=== PATIENT | female | born 1965 | race Caucasian/White ===

== ENCOUNTER → 2019-05-22 11:43 | Outpatient (CLI) | payer MEDICAID, SELFPAY ==
--- NOTE | 2019-05-22 11:52 | US_ITS ---
US transvaginal HISTORY: ITS.REASON: pelvic pain ORDERING PHYSICIAN: Oneal Unger MD PATIENT AGE: 53 years Comparison: None FINDINGS: Prior complete hysterectomy. No pelvic mass apparent. No adnexal mass. Small amount fluid is present in the cervical cuff region. IMPRESSION: Prior hysterectomy. Small amount fluid in the cervical cuff region nonspecific otherwise negative
== END ==
PROVIDERS: PCP Internal Medicine Adolescent Medicine; Visit Provider Obstetrics & Gynecology
DX: R10.2 Pelvic and perineal pain (principal)
CPT/HCPCS: 76830

== ENCOUNTER → 2019-05-23 12:02 | Outpatient (CLI) | payer MEDICAID, SELFPAY ==
--- NOTE | 2019-05-23 15:31 | CT_ITS ---
CT abdomen pelvis wo con CLINICAL INDICATION: Persistent lower abdominal and right-sided pelvic pain ITS.REASON: abd pain ORDERING PHYSICIAN: Julián Shane MD PATIENT AGE: 53 years COMPARISON: 05/19/2019 TECHNIQUE: Axial images obtained with sagittal and coronal reformats. All CT scans at the facility use one or more dose reduction, viz: automated exposure control, ma/kV adjustment per patient size (including targeted exams where dose is matched to indication, i.e. head), or iterative reconstruction technique. IV contrast was not utilized. Images are obtained without and with oral contrast. FINDINGS: There is some patchy density in the right lung base posterior laterally nonspecific. Postcholecystectomy changes. The liver, spleen, adrenal glands, pancreas, and kidneys have an unremarkable unenhanced CT appearance. No renal or ureteral calculi are evident. Previously noted tiny opacity at the right UVJ is no longer apparent. Urinary bladder has an unremarkable appearance. There is a mild amount of retained colonic feces. No evidence of appendicitis or diverticulitis. No intestinal obstruction or free air. The terminal ileum has an unremarkable appearance. There are few small lymph nodes in the mesentery which are nonspecific. Small bowel has an unremarkable appearance. No acute bony findings. No abnormal fluid collections. No free air. No abdominal wall hernias aside from a tiny umbilical hernia containing fat. There are posthysterectomy changes IMPRESSION: 1. No acute abdominal or pelvic findings. 2. Mild amount of retained colonic feces. 3. No evidence of small bowel obstruction or abnormal bowel gas pattern. 4. Previously noted tiny density at the distal right ureter is no longer apparent
== END ==
PROVIDERS: PCP Internal Medicine Adolescent Medicine; Visit Provider Surgery
DX: R10.2 Pelvic and perineal pain (principal); R10.9 Unspecified abdominal pain
CPT/HCPCS: 74176

== ENCOUNTER → 2019-06-03 15:17 | Outpatient (CLI) | payer MEDICAID, SELFPAY ==
--- NOTE | 2019-06-03 | ECG_ITS ---
APPROVED REPORT Exam: Resting ECG HR:77 bpm ECG Measurements Heart Rate 77 AXES VA 156 P 56 QRSd 78 QRS 2 QT 382 T 46 QTc 432 <Conclusion> Normal sinus rhythm Possible Left atrial enlargement,Poor R Wave Progression Abnormal ECG Electronically signed by : Zackery Holcomb, 06/03/2019 17:20:59
[2019-06-03 15:19] LABS: Microscopic, Urine URINE MICROSCOPIC (MICROSCOPIC)
--- NOTE | 2019-06-03 15:36 | XR_ITS ---
PROCEDURE: XR CHEST 2V CLINICAL HISTORY: MITRAL VALVE PROLAPSE; FAMILY HISTORY OF CAD COMPARISON: CXR2V XR chest 2V from 04/17/2018 FINDINGS: Unremarkable cardiovascular structures. Calcified granulomas are present in the left upper lobe. The remaining lungs are clear. No acute bony anomalies. IMPRESSION: No change with no acute finding Dictated by: Jed Arevalo MD 06/03/2019 16:18 Signed by: <Electronically signed by Jed Arevalo MD in [place]> 06/03/2019 16:18
[2019-06-03 15:39] LABS: Appearance,Urine CLEAR (Clear); Bilirubin,Urine Negative (Negative); Blood, Urine Negative (Negative); Color,Urine YELLOW (Yellow); Glucose,Urine (UA) Negative (Negative); Ketones,Urine Negative (Negative); Leukocyte Esterase,Urine Negative (Negative); Nitrate,Urine Negative (Negative); Protein,Urine Negative (Negative); Specific Gravity, Urine 1.025 (1.005-1.030); Urobilinogen,Urine 0.2 EU/dl (0.2)
[2019-06-03 15:42] LABS: Basophils % 0.4 % (0.1-2.0); Eosinophils # 0.2 K/mm3 (0.0-0.4); Eosinophils % 4.1 % (0.1-12.0); Hematocrit 41.8 % (37.0-47.0); Hemoglobin 13.8 g/dL (12.2-16.2); Lymphocytes # 1.7 K/mm3 (0.7-4.5); Lymphocytes % 30.7 % (10-50); Mean Corpuscular HGB Conc 33.1 g/dL (31.8-35.4); Mean Corpuscular Hemoglobin 29.6 pg (27.0-31.2); Mean Corpuscular Volume 89.6 fl (81-99); Monocytes # 0.3 K/mm3 (0.1-1.0); Monocytes % 5.4 % (1.7-9.3); Neutrophils # 3.3 K/mm3 (1.8-7.8); Neutrophils % 59.3 % (37.0-80.0); Platelet Count 273 K/mm3 (142-424); Red Blood Count 4.66 M/mm3 (4.20-5.40); Red Cell Distribution Width 12.3 % (11.5-17.5); White Blood Count 5.5 K/mm3 (4.8-10.8)
[2019-06-03 15:48] LABS: Bacteria,Urine Trace /lpf; Mucus,Urine Trace /lpf; Squamous Epithelial Cell,Urine Occasional #/hpf (0-5)
[2019-06-03 18:18] LABS: Alanine Aminotransferase 59 U/L (12-78); Albumin Level 4.3 gm/dL (3.4-5.0); Albumin/Globulin Ratio 1.2 (1.1-1.8); Alkaline Phosphatase 91 U/L (46-116); Aspartate Amino Transferase 25 U/L (15-37); Bilirubin,Total 1.8 mg/dL (0.2-1.0); Blood Urea Nitrogen 15 mg/dL (7-18); Calcium 9.6 mg/dL (8.5-10.1); Carbon Dioxide 29 mmol/L (21.0-32.0); Chloride 104 mmol/L (98-107); Estimated Glomerular Filt Rate 75 ml/min (>60); GFR (African American) 90 ML/MIN (>60); Globulin 3.6 gm/dl (1.3-3.2); Glucose 90 mg/dL (74-106); Sodium 145 mmol/L (136-145); Total Protein,Serum 7.9 gm/dL (6.4-8.2)
== END ==
PROVIDERS: Visit Provider Obstetrics & Gynecology
DX: Z01.818 Encounter for other preprocedural examination (principal); R10.2 Pelvic and perineal pain
CPT/HCPCS: 36415; 71046; 80053; 81001; 85025; 93005

== ENCOUNTER 2019-06-12 08:36 | Inpatient (IN) ==
[2019-06-12 09:33] LABS: Basophils % 0.3 % (0.1-2.0); Eosinophils # 0.3 K/mm3 (0.0-0.4); Eosinophils % 4.2 % (0.1-12.0); Hematocrit 31.3 % (37.0-47.0); Hemoglobin 10.4 g/dL (12.2-16.2); Lymphocytes # 1.3 K/mm3 (0.7-4.5); Lymphocytes % 22.6 % (10-50); Mean Corpuscular HGB Conc 33.4 g/dL (31.8-35.4); Mean Corpuscular Volume 89.8 fl (81-99); Mean Platelet Volume 8.1 fl (7.4-10.4); Monocytes # 0.4 K/mm3 (0.1-1.0); Monocytes % 6.2 % (1.7-9.3); Neutrophils % 66.7 % (37.0-80.0); Platelet Count 213 K/mm3 (142-424); Red Blood Count 3.48 M/mm3 (4.20-5.40); Red Cell Distribution Width 13.2 % (11.5-17.5); White Blood Count 5.9 K/mm3 (4.8-10.8)
[2019-06-12 09:52] LABS: Anion Gap 10.7 mEq/L (5-15); Calcium 9.1 mg/dL (8.5-10.1)
--- NOTE | 2019-06-12 11:14 | Progress Note ---
Internal Medicine - PN: Subj *Date: 06/12/19 *Time: 11:13 (Please refer to the patient's history and physical on the chart. As of now, the patient is stable in bed. Her CBC was normal and she is afebrile. Her hemoglobin remains stable at 10.[address] the scan this morning showed no change from last night. Plan is to observe the patient at this time. Surgery is still a possibility down the road but hoping for conservative resolution.) Exam Vital signs and Labs for Last 24 Hours: Laboratory Results - last 24 hr 06/12/19 09:06: WBC 5.9, RBC 3.48 L, Hgb 10.4 L, Hct 31.3 L, MCV 89.8, MCH 30.0, MCHC 33.4, RDW 13.2, Plt Count 213, MPV 8.1, Neut % (Auto) 66.7, Lymph % (Auto) 22.6, [place] % (Auto) 6.2, Eos % (Auto) 4.2, Baso % (Auto) 0.3, Neut # (Auto) 4.0, Lymph # (Auto) 1.3, [place] # (Auto) 0.4, Eos # (Auto) 0.3, Baso # (Auto) 0.0 06/12/19 09:06: Sodium 139, Potassium 3.7, Chloride 104, Carbon Dioxide 28, Anion Gap 10.7, BUN 17, Creatinine 0.88, Estimated Creat Clear 99, Estimated GFR 67, Est GFR ( Amer) 81, Glucose 101, Calcium 9.1 06/12/19 09:06: Blood Type O Positive, Antibody Screen Negative I & O for Last 24 hours: Intake & Output 06/09/19 06/10/19 06/11/19 06/12/19 11:59 11:59 11:59 11:59 Weight 189 lb
[2019-06-12 16:05] LABS: Hematocrit 30.2 % (37.0-47.0); Hemoglobin 10.1 g/dL (12.2-16.2)
[2019-06-13 07:04] LABS: Hematocrit 27.1 % (37.0-47.0)
--- NOTE | 2019-06-13 07:34 | Progress Note ---
Internal Medicine - PN: Subj *Date: 06/13/19 *Time: 07:33 Interval history: This is hospital day #2. The patient is afebrile. Her vital signs are stable. Her abdomen is softer, with less ecchymosis, and she has been ambulating. However, her hemoglobin has decreased to 9.0 g (hematocrit 27.1%), and I am going to transfuse her 2 units of packed cells. Exam Vital signs and Labs for Last 24 Hours: Temp Pulse Resp BP Pulse Ox 98.2 F 93 H 16 101/89 L 97 06/13/19 04:40 06/13/19 04:40 06/13/19 04:40 06/13/19 04:40 06/13/19 04:40 Laboratory Results - last 24 hr 06/12/19 09:06: WBC 5.9, RBC 3.48 L, Hgb 10.4 L, Hct 31.3 L, MCV 89.8, MCH 30.0, MCHC 33.4, RDW 13.2, Plt Count 213, MPV 8.1, Neut % (Auto) 66.7, Lymph % (Auto) 22.6, [place] % (Auto) 6.2, Eos % (Auto) 4.2, Baso % (Auto) 0.3, Neut # (Auto) 4.0, Lymph # (Auto) 1.3, [place] # (Auto) 0.4, Eos # (Auto) 0.3, Baso # (Auto) 0.0 06/12/19 09:06: Sodium 139, Potassium 3.7, Chloride 104, Carbon Dioxide 28, Anion Gap 10.7, BUN 17, Creatinine 0.88, Estimated Creat Clear 99, Estimated GFR 67, Est GFR ( Amer) 81, Glucose 101, Calcium 9.1 06/12/19 09:06: Blood Type O Positive, Antibody Screen Negative 06/12/19 16:00: Hgb 10.1 L, Hct 30.2 L 06/13/19 06:25: Hct 27.1 L I & O for Last 24 hours: Intake & Output 06/10/19 06/11/19 06/12/19 06/13/19 11:59 11:59 11:59 11:59 Intake Total 3675 / 3675 Balance 3675 / 3675 Weight 189 lb
--- NOTE | 2019-06-13 13:27 | Pharmacy Consult Notes ---
[facility] Pharmacy VTE Monitoring - Patient Demographics Admission date: 06/12/19 Report Date: 06/13/19 Time: 13:26 Allergies/Adverse Reactions: Patient Allergies Penicillins [PENICILLINS] Allergy (Severe, Verified 06/12/19 08:02) Hives Height: 1.7 m Weight: 85.729 kg - VTE Risk Labs: VTE Related Lab Results Hgb 9.0 g/dL (12.2-16.2) L D 06/13/19 06:25 Hct 27.1 % (37.0-47.0) L 06/13/19 06:25 Plt Count 213 K/mm3 (142-424) 06/12/19 09:06 BUN 17 mg/dL (7-18) 06/12/19 09:06 Creatinine 0.88 mg/dL (0.55-1.02) 06/12/19 09:06 Estimated Creat Clear 99 mL/min (50-200) 06/12/19 09:06 Was VTE Risk Assessment Performed: Yes VTE Score: 1 VTE Risk Level: Very Low Risk Clinical Trial Participant: No - Prophylaxis VTE Prophylaxis Ordered?: Yes Types of VTE Prophylaxis: TEDS Knee High
[2019-06-13 16:51] LABS: Hematocrit 33.6 % (37.0-47.0); Hemoglobin 11.2 g/dL (12.2-16.2)
[2019-06-14 06:36] LABS: Hematocrit 32.8 % (37.0-47.0); Hemoglobin 10.6 g/dL (12.2-16.2)
--- NOTE | 2019-06-14 09:20 | Progress Note ---
Internal Medicine - PN: Subj *Date: 06/14/19 *Time: 09:19 Interval history: This is hospital day #3. The patient is afebrile. Her vital signs are stable. Her hemoglobin after transfusion is 10.6 g. Her abdomen is soft. She is eating and ambulating. She will be discharged today on oral iron. Exam Vital signs and Labs for Last 24 Hours: Temp Pulse Resp BP Pulse Ox 98.4 F 75 18 110/63 100 06/14/19 04:52 06/14/19 04:52 06/14/19 04:52 06/14/19 04:52 06/14/19 08:00 Laboratory Results - last 24 hr 06/12/19 09:06: Blood Type O Positive, Antibody Screen Negative, Crossmatch (AHG) See Detail 06/13/19 09:00: Blood Type Confirm O Positive 06/13/19 16:20: Hgb 11.2 L D, Hct 33.6 L 06/14/19 06:22: Hgb 10.6 L, Hct 32.8 L I & O for Last 24 hours: Intake & Output 06/11/19 06/12/19 06/13/19 06/14/19 11:59 11:59 11:59 11:59 Intake Total 3675 / 3675 550 / 550 Balance 3675 / 3675 550 / 550 Weight 189 lb
--- NOTE | 2019-06-14 09:23 | Discharge Summary ---
General - General Admission date:: 06/12/19 Discharge date: 06/14/19 (This 53-year-old white female was admitted 6 days postop diagnostic laparoscopy with an abdominal wall hematoma as evidenced by CT scan in the emergency room the evening before. Her hemoglobin on admission was 10.[address] scan on the date of admission revealed no change, but the patient was considerably uncomfortable and showed ecchymosis of her abdominal wall. She remained afebrile throughout her hospitalization, but was transfused 2 units of packed cells when her hemoglobin dipped to 9.0 g. Post transfusion her hemoglobin is 10.6 g, and she is clinically stable. She is eating and ambulating and has had a bowel movement. Her abdomen is soft. She is taking minimal pain medication. She is discharged home on the third hospital day on oral iron twice a day, and on Lortab 5/325 (1 p.o. every 6 hours as needed pain (the patient has this at home)). She is given instructions as to animal activity, and is to keep her scheduled appointment in 5 days, or as needed for worsening symptoms.) Objective Vital signs: Temp Pulse Resp BP Pulse Ox 98.4 F 75 18 110/63 100 06/14/19 04:52 06/14/19 04:52 06/14/19 04:52 06/14/19 04:52 06/14/19 08:00 Results Labs on day of discharge: Labs from last 24 hours 06/14/19 06/13/19 06/13/19 06:22 16:20 09:00 Hgb 10.6 L 11.2 L D Hct 32.8 L 33.6 L Blood Type Blood Type Confirm O Positive Antibody Screen Crossmatch (AHG) 06/12/19 09:06 Hgb Hct Blood Type O Positive Blood Type Confirm Antibody Screen Negative Crossmatch (AHG) See Detail Discharge Plan - Patient Discharge Instructions - Follow up Plan Home Medications: Home Medications Medication Instructions Recorded Confirmed Type No Known Home Medications 06/13/19 06/13/19 History Prescriptions/Medication Reconciliation: No Action No Known Home Medications - Problem Reconciliation Problems Reviewed?: Yes
== END 2019-06-14 09:54 | disposition home or self-care (01) | DRG 921 ==
LOC: OB 08:36
PROVIDERS: ADMIT Obstetrics & Gynecology; ATTEND Obstetrics & Gynecology
CPT/HCPCS: 36415; 74177; 80048; 85014; 85018; 85025; 86850; J2405; P9016; Q9967; S0077

== ENCOUNTER 2024-04-02 09:36 | Outpatient (CLI) | payer MEDICAID, SELFPAY ==
[2024-04-02 10:01] LABS: Basophils # 0.1 K/mm3 (0-0.2); Eosinophils # 0.4 K/mm3 (0.0-0.4); Hematocrit 39.4 % (37.0-47.0); Lymphocytes # 1.5 K/mm3 (0.7-4.5); Lymphocytes % 32.5 % (10-50); Mean Corpuscular Hemoglobin 30.2 pg (27.0-31.2); Mean Corpuscular Volume 91.6 fl (81-99); Mean Platelet Volume 8.5 fl (7.4-10.4); Monocytes # 0.4 K/mm3 (0.1-1.0); Monocytes % 7.9 % (1.7-9.3); Neutrophils # 2.4 K/mm3 (1.8-7.8); Neutrophils % 50.7 % (37.0-80.0); Platelet Count 274 K/mm3 (142-424); Red Blood Count 4.31 M/mm3 (4.20-5.40); Red Cell Distribution Width 13.8 % (11.5-17.5); White Blood Count 4.7 K/mm3 (4.8-10.8)
[2024-04-02 10:16] LABS: Alanine Aminotransferase 33 U/L (12-78); Albumin Level 4.2 g/dl (3.5-5.0); Albumin/Globulin Ratio 1.6 (1.1-1.8); Alkaline Phosphatase 83 U/L (38-126); Anion Gap 13.1 mEq/L (5-15); Aspartate Amino Transferase 29 U/L (14-36); Blood Urea Nitrogen 15 mg/dl (7-17); Calcium 9.4 mg/dl (8.4-10.2); Carbon Dioxide 27 mmol/L (22.0-30.0); Chloride 106 mmol/L (98-107); Chol/HDL Ratio 4.2 (1-3.5); Cholesterol 190 mg/dl (140-200); Estimated Glomerular Filt Rate 86 ml/min (>60); GFR (African American) 104 ML/MIN (>60); Globulin 2.6 g/dL (1.3-3.2); Glucose 116 mg/dl (74-100); HDL Cholesterol 45 mg/dl (40-60); Potassium 4.1 mmoL/L (3.5-5.1); Sodium 142 mmol/L (136-145); Total Protein,Serum 6.8 g/dl (6.3-8.2); Triglycerides 214 mg/dl (30-150); VLDL Cholesterol 43 mg/dL (0-40)
[2024-04-02 10:35] LABS: 25-OH Vitamin D, Total 23.8 ng/mL (30-100)
[2024-04-02 10:42] LABS: Hemoglobin A1C 5.3 % (4.0-6.0)
[2024-04-02 10:47] LABS: Thyroid Stimulating Hormone 2.16 uIU/mL (0.465-4.68)
[2024-04-02 11:07] LABS: Vitamin B12 405 pg/mL (239-931)
== END 2024-04-02 23:59 | disposition home or self-care (01) ==
PROVIDERS: PCP Nurse Practitioner Family; Visit Provider Nurse Practitioner Family
DX: R53.83 Other fatigue (principal); R05.9 Cough, unspecified; R06.2 Wheezing; R06.02 Shortness of breath; E55.9 Vitamin D deficiency, unspecified; Z68.38 Body mass index [BMI] 38.0-38.9, adult; E66.9 Obesity, unspecified
CPT/HCPCS: 36415; 80050; 80053; 80061; 82306; 82607; 83036; 84443; 85025

== ENCOUNTER 2024-04-19 14:39 | Outpatient (CLI) | payer MEDICAID, SELFPAY | END 2024-04-19 23:59 | disposition home or self-care (01) | LOC: LAB 14:39 | PROVIDERS: PCP Nurse Practitioner Family; Visit Provider Nurse Practitioner Family | DX: R05.2 Subacute cough (principal); R06.02 Shortness of breath | CPT/HCPCS: 87070; 87205 ==

== ENCOUNTER 2024-05-01 10:16 | Outpatient (CLI) | payer MEDICAID, SELFPAY | END 2024-05-01 23:59 | disposition home or self-care (01) | LOC: LAB 10:17 | PROVIDERS: PCP Nurse Practitioner Family; Visit Provider Nurse Practitioner Family | DX: Z02.9 Encounter for administrative examinations, unspecified (principal) ==

== ENCOUNTER 2024-05-07 16:05 | Outpatient (CLI) | payer MEDICAID, SELFPAY ==
[2024-05-07 16:34] LABS: Basophils % 0.5 % (0.1-2.0); Eosinophils # 0.5 K/mm3 (0.0-0.4); Eosinophils % 8.3 % (0.1-12.0); Hematocrit 38.9 % (37.0-47.0); Hemoglobin 13.5 g/dL (12.2-16.2); Lymphocytes # 1.7 K/mm3 (0.7-4.5); Lymphocytes % 27.2 % (10-50); Mean Corpuscular HGB Conc 34.7 g/dL (31.8-35.4); Mean Corpuscular Hemoglobin 30.6 pg (27.0-31.2); Mean Corpuscular Volume 88.3 fl (81-99); Mean Platelet Volume 7.5 fl (7.4-10.4); Monocytes # 0.4 K/mm3 (0.1-1.0); Monocytes % 6.5 % (1.7-9.3); Neutrophils # 3.6 K/mm3 (1.8-7.8); Neutrophils % 57.6 % (37.0-80.0); Platelet Count 248 K/mm3 (142-424); Red Blood Count 4.41 M/mm3 (4.20-5.40); White Blood Count 6.3 K/mm3 (4.8-10.8)
[2024-05-07 16:52] LABS: Alanine Aminotransferase 35 U/L (12-78); Albumin Level 4.4 g/dl (3.5-5.0); Albumin/Globulin Ratio 1.6 (1.1-1.8); Alkaline Phosphatase 82 U/L (38-126); Aspartate Amino Transferase 34 U/L (14-36); Bilirubin,Total 0.8 mg/dl (0.2-1.3); Blood Urea Nitrogen 18 mg/dl (7-17); Carbon Dioxide 26 mmol/L (22.0-30.0); Chloride 109 mmol/L (98-107); Estimated Glomerular Filt Rate 73 ml/min (>60); GFR (African American) 89 ML/MIN (>60); Globulin 2.8 g/dL (1.3-3.2); Glucose 98 mg/dl (74-100); Sodium 143 mmol/L (136-145); Total Protein,Serum 7.2 g/dl (6.3-8.2)
[2024-05-07 16:53] LABS: Uric Acid 6.6 mg/dl (2.5-6.2)
[2024-05-07 17:01] LABS: NT Pro Brain Natriuretic Pep. 68.4 pg/mL (0-125)
[2024-05-07 17:10] LABS: Free T4 (Free Thyroxine) 0.64 ng/dl (0.78-2.19)
[2024-05-07 17:11] LABS: 25-OH Vitamin D, Total 29.2 ng/mL (30-100)
[2024-05-07 17:22] LABS: Thyroid Stimulating Hormone 3.06 uIU/mL (0.465-4.68)
[2024-05-07 18:23] LABS: Erythrocyte Sedimentation Rate 22 mm/hr (0-30)
[2024-05-09 07:34] LABS: RA Latex Turbid. 10.7 IU/mL (<14.0)
[2024-05-09 12:53] LABS: Triiodothyronine (T3) Free 3.5 pg/mL (2.0-4.4)
[2024-05-09 12:53] LABS: Thyroid Peroxidase Antibodies <9 IU/mL (0-34)
[2024-05-09 16:14] LABS: Thyroglobulin Level <1.0 IU/mL (0.0-0.9)
[2024-05-14 06:15] LABS: F026-IgE Pork < 0.10 kU/L (Class 0); F027-IgE Beef < 0.10 kU/L (Class 0); F088-IgE Lamb < 0.10 kU/L (Class 0); Immunoglobulin E, Total 51 IU/mL (6-495); O215-IgE Alpha-Gal < 0.10 kU/L (Class 0)
[2024-05-14 21:23] LABS: Magnesium,RBC 5.4 mg/dL (3.7-7.0)
[2024-06-09 15:07] LABS: Antinuclear Antibodies, IFA POSITIVE
[2024-06-09 15:07] LABS: Antinuclear Antibodies, IFA POSITIVE
== END 2024-05-07 23:59 | disposition home or self-care (01) ==
LOC: LAB 16:07
PROVIDERS: PCP Nurse Practitioner Family; Visit Provider Allergy & Immunology
DX: R63.5 Abnormal weight gain (principal); M79.7 Fibromyalgia; R06.02 Shortness of breath; M25.50 Pain in unspecified joint; E55.9 Vitamin D deficiency, unspecified; Z68.39 Body mass index [BMI] 39.0-39.9, adult
CPT/HCPCS: 36415; 80050; 80053; 82306; 83520; 83735; 83880; 84439; 84443; 84481; 84550; 85025; 85651; 86038; 86352; 86376; 86431; 86800